=== PATIENT | male | born 1935 | race Caucasian/White ===

== ENCOUNTER → 2016-04-15 | Day surgery (SDC) | payer OTHER, MEDICARE ==
[~2016-04-15] VITALS: Ht 175.3 cm; Wt 95.3 kg
[~2016-04-15] MED LIST: ATORVASTATIN CA20 MG PO; ATORVASTATIN CA80 M1; CLOPIDOGREL75 MG PO; DIGOXIN250 MCG; FINASTERIDE5 MG PO; LASIX20 M1; LASIX40 M1 PO; LIORESAL 10MG T10 MG PO; LOSARTAN POTASS25 MG PO; MOBIC15 MG PO; PROPRANOLOL HCL10 MG PO; SERTRALINE HYDR50 MG PO; TOPROL XL25 M1 PO; XARELTO20 M2
--- NOTE | 2016-04-15 16:12 | Operative Report ---
Operative/Inv Procedure Report Surgery Date: 04/15/16 Name of Procedure: Right carpal tunnel release Pre-Operative Diagnosis: Right carpal tunnel syndrome Post-Operative Diagnosis: Same Estimated Blood Loss: scant Surgeon/Steam Heating Installer: ADRIANO DUMONT,EZRA Anesthesia: local monitored anesthesi, moderate sedation Implants: None Drains: None Specimens: No specimens Tourniquet: 24 Complications: None Condition: Stable Operative Indication: Patient is an 81-year-old man with gradually worsening symptoms consistent with carpal tunnel syndrome. The managed and tolerated symptoms for a long period of time and was concerned with surgical management since he has multiple medical, cardiac and pulmonary problems. However symptoms worsened and interfere with normal activities including sleep and repetitive activities. His studies revealed findings consistent with progressed carpal tunnel syndrome. He wished to proceed with surgical management after risks, benefits and expectations of nonsurgical and surgical treatment were discussed including but not limited to persistent pain, recurrent symptoms, anesthesia risks and injury to blood vessel or nerve, infection. Operative/Procedure Note Note: Patient was brought to the operating room and transferred to the operating table. Once under appropriate anesthesia the right upper extremity was prepped and draped in standard fashion. Preoperative IV antibiotics were given prophylactically. The right upper extremity was elevated exsanguinated and tourniquet was inflated to 250. A standard incision was made over the carpal tunnel 6 cm in line with the radial border of the ring finger and stopping short of the distal wrist crease volarly. Incision was taken down sharply to the underlying superficial transverse fibers. These were incised in line with the skin incision. This exposed a very thickened deep transverse ligament. A small incision was made in the deep transverse ligament. I then placed a Cornelia underneath the deep transverse ligament and released it proximally and distally. The Cornelia was used to protect the underlying structures including the median nerve. The median nerve was found to be intact but very flattened consistent with patient's history. A major there was no evidence of any entrapment or compression with branches towards the thenar eminence. No evidence of masses or abnormal anatomy within the carpal tunnel area once I confirmed proximal and distal release. Copious irrigation followed. I then closed the skin incision with interrupted 4-0 nylon. Appropriate just his were applied and patient was awakened and taken the recovery room. No intraoperative complications. Blood loss was minimal due to tourniquet which was deflated after the dressing was applied. Normal capillary refill following the tourniquet deflation Discharge Disposition: PACU
== END ==
LOC: STS 03-29 07:00
DX: G56.01 Carpal tunnel syndrome, right upper limb (principal); I10 Essential (primary) hypertension; I48.0 Paroxysmal atrial fibrillation; Z79.01 Long term (current) use of anticoagulants; Z86.73 Personal history of transient ischemic attack (TIA), and cerebral infarction without residual deficits; Z87.891 Personal history of nicotine dependence
CPT/HCPCS: 36415; J0690

== ENCOUNTER → 2016-05-17 | Day surgery (SDC) | payer OTHER, MEDICARE ==
[~2016-05-17] VITALS: Ht 175.3 cm; Wt 95.3 kg
--- NOTE | 2016-05-17 15:04 | Operative Report ---
Operative/Inv Procedure Report Surgery Date: 05/17/16 Name of Procedure: Left carpal tunnel release Pre-Operative Diagnosis: Left carpal tunnel syndrome Post-Operative Diagnosis: Same Estimated Blood Loss: scant Surgeon/Fusing Machine Operator: ADRIANO DUMONT,EZRA Anesthesia: local monitored anesthesi Implants: None Specimens: None Tourniquet: 21 minutes Complications: None Condition: Stable Operative Indication: Patient is an 81-year-old man with history of chronic carpal tunnel syndrome. Symptoms worsened and interfere with sleep and other normal activities of daily living. He underwent right carpal tunnel release several weeks ago and he wished to proceed with left carpal tunnel release. Risks, benefits and expectations of surgical and further nonsurgical options were discussed including but not limited to persistent pain, need for subsequent surgery, infection, anesthesia risks, injury to blood vessel or nerve Operative/Procedure Note Note: Patient was brought to the operating room and transferred to the operating room table. Once under appropriate anesthesia the left upper extremity was prepped and draped in standard fashion. Reoperative IV antibiotics were given prophylactically. The left the upper extremity was elevated exsanguinated and tourniquet was inflated. Local injection of 0.5% Marcaine was used. A standard incision was made along the just ulnar to the thenar crease and in line with the radial border of the ring finger just distal to the distal wrist crease volarly. The incision was taken down to the underlying superficial transverse fibers. These were incised exposing the deep transverse ligament. A small incision was made in the central portion of the deep transverse ligament. A Bode elevator was placed underneath the deep transverse ligament through this small hole proximally and then I released the ligament right over the Bode to protect the underlying structures including the median nerve. I released proximally and confirmed complete release. I reversed my Bode placed distally and completed the distal release in similar fashion. The carpal tunnel contents appear to be normal except for the flat nature of the median nerve. No masses. No abnormal tendon findings. Copious irrigation followed. I then closed the skin with interrupted nylon sutures. Appropriate dressings were applied and patient was awakened and taken the recovery room in good condition. Tourniquet was deflated after the dressing was applied. 21 minutes Discharge Disposition: Same Day Admissions
== END ==
LOC: STS 07:00
DX: G56.02 Carpal tunnel syndrome, left upper limb (principal); I10 Essential (primary) hypertension; I48.91 Unspecified atrial fibrillation; Z79.01 Long term (current) use of anticoagulants; Z86.711 Personal history of pulmonary embolism; E78.00 Pure hypercholesterolemia, unspecified
CPT/HCPCS: J0690; J2250